=== PATIENT | male | born 1950 | race Caucasian/White ===

== ENCOUNTER 2017-11-08 01:54 | Emergency (ER) | payer MEDICARE, OTHER ==
[2017-11-08] MEDS ORDERED: ACETAMINOPHEN 325 MG TAB ONE (03:00)
[2017-11-08] MEDS ORDERED: KETOROLAC TROMETHAMINE 30MG/ML ONE (03:56)
[2017-11-08] MEDS ORDERED: NEOMYCIN/POLYMYXIN/HC OTIC SUSP 10ML BOTTLE ONE (03:56)
[2017-11-08] MEDS ORDERED: LEVOFLOXACIN 500 MG TABLET ONE (05:01)
== END 2017-11-08 05:19 | disposition home or self-care (01) ==
LOC: EDH 01:54
DX: H60.311 Diffuse otitis externa, right ear (principal); E11.9 Type 2 diabetes mellitus without complications; I10 Essential (primary) hypertension; E78.5 Hyperlipidemia, unspecified; Z88.0 Allergy status to penicillin
CPT/HCPCS: 96372; 99284; J1885